=== PATIENT | female | born 1970 | race Caucasian/White ===

== ENCOUNTER → 2020-01-02 | Outpatient (CLI) | payer BC ==
[~2020-01-02] MED LIST: NOHOMEMEDICATIONS; NORCO 5-325 TA1 EACH PO
== END ==
LOC: SJCVCIMAG 09:16
PROVIDERS: ATTEND Internal Medicine
DX: I48.0 Paroxysmal atrial fibrillation (principal); I49.1 Atrial premature depolarization; I11.0 Hypertensive heart disease with heart failure; I50.32 Chronic diastolic (congestive) heart failure; E78.5 Hyperlipidemia, unspecified; I49.3 Ventricular premature depolarization

== ENCOUNTER → 2020-01-25 | Outpatient (CLI) | payer BC, OTHER | LOC: LAB 10:30 | PROVIDERS: ATTEND Internal Medicine Cardiovascular Disease | DX: Z01.812 Encounter for preprocedural laboratory examination (principal); Z20.828 Contact with and (suspected) exposure to other viral communicable diseases ==

== ENCOUNTER → 2020-01-25 | Outpatient (CLI) | payer BC, OTHER ==
[2020-01-25 09:34] LABS: ABSOLUTE NEUTROPHILS 5.7 thou/uL (1.4-8.2); EOSINOPHILS 2.1 % (0.0-3.0); HEMATOCRIT 41.4 % (37.0-47.0); HEMOGLOBIN 13.3 gm/dL (12.0-15.0); LYMPHOCYTES 24.4 % (24.0-44.0); MCH 27.7 pg (26.0-34.0); MCV 86.5 fL (80.0-100.0); MONOCYTES 10.3 % (1.0-8.0); PLATELET COUNT 318 thou/uL (150-400); POLYS 62.2 % (36.0-66.0); RBC 4.79 mil/uL (4.20-5.00); RDW 15.6 % (10.5-14.5); WBC 9.2 thou/uL (4.0-11.0)
[2020-01-25 09:54] LABS: ALBUMIN 3.8 g/dL (3.4-5.0); CALCIUM 8.9 mg/dL (8.5-10.1); CREATININE 0.5 mg/dL (0.6-1.0); POTASSIUM 4.4 mmol/L (3.5-5.1); TOTAL BILIRUBIN 0.3 mg/dL (0.2-1.0); TOTAL PROTEIN 7.2 g/dL (6.4-8.2)
== END ==
LOC: CAT 09:10
PROVIDERS: ATTEND Internal Medicine Cardiovascular Disease
DX: I48.91 Unspecified atrial fibrillation (principal); M47.814 Spondylosis without myelopathy or radiculopathy, thoracic region; E27.8 Other specified disorders of adrenal gland

== ENCOUNTER → 2020-01-29 | Outpatient (CLI) | payer BC, OTHER ==
[~2020-01-29] VITALS: Ht 170.2 cm; Wt 133.8 kg
[~2020-01-29] MED LIST changes: +BREO ELLIPTA 21 EACH INH; +COZAAR 25 MG TA25 M1 PO; +DILTIAZEM ER180 M2 PO; +ELIQUIS5 MG PO; +POTASSIUM20 PO; +PROAIR HFA8.5 GM INH; +PROTONIX40 M2 PO; +SINGULAIR 10 MG10 M1 PO; +SLOW FE142 MG PO; +TAMBOCOR 100 M100 MG PO; +TORSEMIDE20 MG PO; +VITAMIN D31250 MCG PO
[2020-01-29 07:04] VITALS: BP 130/77
--- NOTE | 2020-01-29 08:46 | TEE ---
[facility] [place] [address] TRANSESOPHAGEAL ECHOCARDIOGRAM Name: HODA LOZANO Room #: REG REG Mac#: [id number] Admission: 01/29/20 Attend Phys: Kee Astudillo MD, Discharge: Date of : 66 Report #: [id number] THIS REPORT FOR: cc: Roe Haines MD,Kee Madden MD, MD [facility] ~ APPROVED REPORT Study performed: 01/29/2020 07:46:42 EXAM: Transesophageal Echocardiogram Patient Location: holding Status: routine BSA: 2.39 HR: 79 bpm BP: 145/79 mmHg Other Information Study Quality: Good Indications Atrial Fibrillation Echo Enhancing Agent Indication: Rule out thrombus Agent(s) / Amount(s) Used: Agitated Saline 6 cc Procedure After obtaining informed consent, patient underwent transesophageal echo in the [employer]. Type of Sedation : Conscious Sedation Sedation was administered by Adriana Solitario RN. Sedation start time: 8:11 Case end Time: 8:14 Sedation was achieved intravenously with: Versed (6.5) Fentanyl (150) Transesophageal probe was inserted and advanced into esophagus without difficulty by Kee Astudillo MD. Echo enhancement indication: R/O Septal defect. Echo enhancement agent administered: Agitated Saline The MANISHA was performed without complications. Throughout the procedure, the blood pressure, pulse oximetry, cardiac rhythm, and rate were monitored. The patient tolerated the procedure without adverse effects. Recovery from conscious sedation was uneventful and vital signs were [facility] [address] [place] [address] TRANSESOPHAGEAL ECHOCARDIOGRAM Name: HODA LOZANO Room #: REG CL Darin.#: [id number] Admission: 01/29/20 Attend Phys: Kee Astudillo, Discharge: Date of : 66 Report #: [id number] stable. Left Ventricle The left ventricle is normal size. There is normal LV segmental wall motion. There is normal left ventricular wall thickness. The left ventricular systolic function is normal. The left ventricular ejection fraction is within the normal range. LVEF is 55-60%. Right Ventricle The right ventricle is normal size. The right ventricular systolic function is normal. Atria Left atrium is mildly dilated. No thrombus is visualized in the left atrium or appendage. No shunting by contrast bubble injection. The right atrium size is normal. Aortic Valve The aortic valve is normal in structure. No aortic regurgitation is present. There is no aortic valvular stenosis. Mitral Valve The mitral valve is normal in structure. Trace mitral regurgitation. No evidence of mitral valve stenosis. Tricuspid Valve The tricuspid valve is normal in structure. There is no tricuspid valve regurgitation noted. Pulmonic Valve The pulmonary valve is normal in structure. There is no pulmonic valvular regurgitation. Great Vessels The aortic root is normal in size. The ascending aorta is normal in size. IVC is normal in size and collapses >50% with inspiration. Pericardium There is no pericardial effusion. <Conclusion> The left ventricular systolic function is normal. There is normal LV segmental wall motion. LVEF is 55-60%. Left atrium is mildly dilated. [facility] [address] [place] [address] TRANSESOPHAGEAL ECHOCARDIOGRAM Name: HODA LOZANO Room #: REG CL MorrisMurali#: [id number] Admission: 01/29/20 Attend Phys: Kee Astudillo, Discharge: Date of : 66 Report #: [id number] No shunting by contrast bubble injection. No thrombus is visualized in the left atrium or appendage. The aortic valve is normal in structure. No aortic regurgitation or stenosis The mitral valve is normal in structure. Trace mitral regurgitation. There is no pericardial effusion. <ELECTRONICALLY SIGNED> By: Kee Astudillo MD, FACC 01/29/2046 5 5 Kee Astudillo MD, FACC /INF
--- NOTE | 2020-01-29 10:02 | NUR ---
PT GIVEN BENADRYL 25 MG IV AND SOLUMEDROL 125 MG IV PRIOR TO DISCHARGE. VO DR. ALAMO.
== END | disposition home or self-care (01) ==
LOC: CATH 06:27
PROVIDERS: ATTEND Internal Medicine
DX: I48.91 Unspecified atrial fibrillation (principal); I34.9 Nonrheumatic mitral valve disorder, unspecified; I48.92 Unspecified atrial flutter; I10 Essential (primary) hypertension; M79.7 Fibromyalgia; G47.33 Obstructive sleep apnea (adult) (pediatric); J45.909 Unspecified asthma, uncomplicated; K21.9 Gastro-esophageal reflux disease without esophagitis; Z98.890 Other specified postprocedural states; Z79.899 Other long term (current) drug therapy; Z79.01 Long term (current) use of anticoagulants; Z88.2 Allergy status to sulfonamides; Z88.0 Allergy status to penicillin; Z91.041 Radiographic dye allergy status

== ENCOUNTER 2020-01-30 06:36 | Observation (INO) | payer BC, OTHER ==
[~2020-01-30] VITALS: Ht 170.2 cm; Wt 133.8 kg
[2020-01-30] VITALS (11 sets, daily range): BP systolic 114–151; BP diastolic 66–94
--- NOTE | ~2020-01-30 | P ---
[facility] [address] PROCEDURE REPORT Name: HODA LOZANO Room #: [facility].Darin#: [id number] Admission: 01/30/20 Attend Phys: Shad Castañeda MD Discharge: Date of : 66 Report #: [id number] THIS REPORT FOR: cc: Roe Haines MD,Symone Castañeda,Shad Gray MD ~ CC: Symone Castañeda DATE OF SERVICE: 01/30/2020 PREOPERATIVE DIAGNOSIS: Atrial fibrillation. POSTOPERATIVE DIAGNOSES: Atrial fibrillation and atrial flutter. HISTORY: The patient is a 49-year-old female with history of paroxysmal atrial fibrillation, hypertension, obstructive sleep ____ and obesity, who continues to have AFib despite antiarrhythmic drug therapy. She is here for AFib ablation. PROCEDURES PERFORMED: 1. AFib ablation, CPT code 82630. 2. 3D mapping, CPT code 32690. 3. Intracardiac echo, CPT code 29474. 4. Second pathway ablation, CPT code 57061. ANESTHESIA: The patient underwent general anesthesia with no anesthesia-related complications. DESCRIPTION OF PROCEDURE: The patient underwent informed consent. We discussed the details of the procedure including the risks, which include, but are not limited to bleeding, infection, vascular damage, cardiac perforation, as well as stroke and WA. She understood these risks and is willing to proceed. The patient was brought to EP laboratory in fasting and sedated state, prepped and draped in sterile fashion. I then obtained access to the right femoral vein x 3, placing an 8, 9 and 7-Slovenian short sheath using the modified Seldinger technique and under fluoroscopy, I placed a Decapolar catheter easily in the coronary sinus for left atrial pacing and recording, and an ICE catheter into the right atrium. Using intracardiac ultrasound, there was evidence of a nice thin interatrial septum. She had two left and two right pulmonary veins. The 3D geometry using intracardiac ultrasound was created and this was merged with the cardiac CT scan. The patient was then systemically heparinized and a transseptal was performed using an SL1 sheath and a Barnes needle. This was straightforward and I was able to exchange to the cryo sheath, and placed the Lasso catheter in left atrium and created a detailed 3D voltage map of the left [address] [address] PROCEDURE REPORT Name: HODA LOZANO Room #: 211-P [facility] Tricia Hong#: [id number] Admission: 01/30/20 Attend Phys: Sahd Castañeda MD Discharge: Date of : 66 Report #: [id number] atrium. While doing so, the patient went into atrial flutter with a tachycardia cycle length of 250 milliseconds, proximal to distal activation along the CS and negative sawtooth flutter waves in the inferior leads consistent with typical atrial flutter. I was able to terminate this. Next, the cryoballoon was placed into the left atrium and we started trying to isolate the left superior pulmonary vein. This vein was challenging to isolate. I performed 5 separate freezes, all with good seals and I performed several freezes that were anterior, inferior, and superiorly directed without isolation. I turned my attention to the left inferior pulmonary vein and performed a 4-minute freeze. This vein isolated within 45 seconds. The right superior pulmonary vein underwent a 180-second freeze followed by a 60-second freeze. It appeared that the vein had isolated during the first freeze. I then turned my attention to the right inferior pulmonary vein. This vein underwent a single 4-minute freeze and isolated within 40 seconds. I then removed the cryoballoon from the left atrium and placed the Lasso catheter back in, and all veins were isolated except the left superior pulmonary vein, which had continued signals along the roof region of the vein. Therefore, I went back up with the balloon and I performed a roof freeze near the left superior pulmonary vein and this resulted in isolation within 60 seconds. This vein underwent a 4-minute freeze. As such, voltage map showed that everything was now isolated and left-sided procedure was concluded. ATRIAL FLUTTER ABLATION As the patient had demonstrated typical atrial flutter, we prepped her for atrial flutter ablation. I removed my 9-Slovenian short sheath and placed my RAMP sheath and 8 mm ablation catheter into the right atrium. Using intracardiac ultrasound, she did have a prominent pouch noted. Ablation was performed at 70 hastings and 60 degrees. Transisthmus conduction time prior to ablation was 60 milliseconds and I performed initial line, but there was no evidence of block. I therefore performed a more lateral line to get to some of the signals that were closer to the tricuspid valve. Of note, her anatomy was somewhat unusual and difficult for me to get to this tricuspid valve region. I performed one line slightly lateral to the initial line to get these signals and then performed a more medial line, focusing on the anterior signals along the tricuspid valve. After doing this, there was a bidirectional block of the transisthmus conduction time of 145 milliseconds. As such, the patient received systemic protamine. Catheters and sheaths were pulled and a [id number] suture was performed in the right groin. There were no procedure-related complications and no significant bleeding. CONCLUSIONS: [address] [address] PROCEDURE REPORT Name: HODA LOZANO Room #: 211-P [facility] M.R.#: [id number] Admission: 01/30/20 Attend Phys: Shad Castañeda MD Discharge: Date of : 66 Report #: [id number] 1. Successful AFib ablation with isolation of the pulmonary veins. 2. Successful atrial flutter ablation with evidence of bidirectional block. By: [id number] Shad Castañeda MD /nt
[~2020-01-30 06:36] MED LIST changes: -PROAIR HFA8.5 GM INH
[2020-01-30] MEDS ORDERED: PROAIR HFA8.5 GM INH (07:34)
[2020-01-30 07:39] LABS: HEMATOCRIT 41.1 % (37.0-47.0); HEMOGLOBIN 13.1 gm/dL (12.0-15.0); MCH 27.6 pg (26.0-34.0); MCHC 31.9 g/dL (28.0-37.0); MCV 86.4 fL (80.0-100.0); PLATELET COUNT 365 thou/uL (150-400); RBC 4.75 mil/uL (4.20-5.00); RDW 15.5 % (10.5-14.5); WBC 23.9 thou/uL (4.0-11.0)
[2020-01-30 07:51] LABS: CALCIUM 9.2 mg/dL (8.5-10.1); CREATININE 0.8 mg/dL (0.6-1.0); POTASSIUM 3.7 mmol/L (3.5-5.1)
[2020-01-30 07:57] LABS: TOTAL BILIRUBIN 0.2 mg/dL (0.2-1.0); TOTAL PROTEIN 7.8 g/dL (6.4-8.2)
[2020-01-30 09:04] LABS: APTT 28.2 Seconds (24.5-32.8); PROTIME 10.7 Seconds (9.3-11.4)
[2020-01-30 09:56] LABS: LARGE PLATELETS OCCASIONAL
--- NOTE | 2020-01-30 13:10 | NUR ---
PT. ON OUR UNIT, ASSESSMENT COMPLETED. SHE REPORTS ALOT OF "BUILD UP AND ANXIETY "- ABOUT PROCEDURE SO NOW SHE JUST WANTS TO SLEEP AND RELAX. HAS MIDDLE DULL BACK PAIN SHE ATTRIBUTES TO LYING FLAT IN THE BED AND NOT MOVING. WE PUT HER BIPAP ON HER NOW SO SHE COULD RELAX A LITTLE MORE AND SHE WEARS IT TO NAP DURING THE DAY PER HER REPORT. PT. IS NSR ON THE MONITOR NO ECTOPY OBSERVED AT ALL. DENIES ANY CHEST PAIN OTHER THEN. "FEELS LIKE MAYBE THEY DID SOMETHING UP THERE TODAY". PEDAL PULSES ARE 2+ STRONG BILATERALLY, LEGS ARE WARM TO TOUCH, NO MOTTLING OBSERVED.
--- NOTE | 2020-01-30 18:03 | NUR ---
13:30- RIGHT GROIN CATHETER REMOVED PER COUCHNALL . NO HEMATOMA AT SITE, PEDAL PULSES REMAIN STRONG, 2+ BILATERALLY AND BOTH LEGS WARM TO TOUCH. PT. WILL BE OFF 6 HOURS BESDREST AT 16:30 TODAY AND INSTRUCTED TO SUCH. LONG DISCUSSION ABOUT POST OP EXPECTATIONS AND CHEST PAIN WHEN SHE BREATHES IN ONLY, SAID THIS IS FROM THEM "FREEZING HER HEART"-DURING THE PROCEDURE AND IS VERY NORMAL. SLEEPING WITH HER CPAP ON AND OFF THIS AFTERNOON. MONITOR SHOWS NSR NO ECTOPY NOW.
--- NOTE | 2020-01-30 18:05 | NUR ---
14:30 WOKE UP FROM SLEEPING ATE HER LUNCH AND RIGHT GROIN REMAINS HEMATOMA FREE AND NO OOZING AT SITE. MONITOR SHOWS NSR NO ECTOPY AND SHE IS TEARFUL SHE SAID FROM "ALL THE STRESS SHE HAD PRIOR TO SURGERY AND THE BUILD UP".
--- NOTE | 2020-01-30 18:07 | NUR ---
16:30 OFF BEDREST AT THIS TIME. VERY TALKATIVE AND IN GOOD SPIRITS OVERALL. DENIES ANY CHEST PAIN. NSR ON THE MONITOR AND NO ECTOPY NOTED . RIGHT GROIN HEMATOMA FREE, NO OOZING FROM GROIN SITE DRESSING.
--- NOTE | 2020-01-30 19:48 | NUR ---
PT. UP TO BATHROOM TO CLEAN UP HER MENSES, SPRUNG A SMALL AMOUNT OF BLEEDING IN MOVEMENT (40ML) OUT, PRESSURE MAINATINED ON GROIN SITE IMMEDIATLEY. SHE HAD HUGE SOAKED MENSES PAD FROM HER PERIOD WHICH SHE SAID IS HER "NORMAL FLOW OFTEN". WITHIN HER NOMRAL LIMITS FOR HER PERIOD. RIGHT GROIN LOOKS HEMATOMA FREE, PULSES ARE STRONG BILATERALLY AND NO MOTTLING ON HER LEGS BILATERALLY ANYWHERE. REPROT GIVEN TO ONCOMING NURSE. BACK IN BED, VS RETUNRED TO BASELINE AND DENIES PAIN PRESENTLY. NSR , NO ECTOPY POST LEAK AT SITE BLOOD PRESSURE WITHIN HER PRIOR VALUES.
--- NOTE | 2020-01-31 03:30 | NUR ---
PATIENT IS PROGRESSING SLOWLY IN HER CARE PLAN. VITAL SIGNS STABLE WITH PATIENT HAVING NO COMPLAINTS OF PAIN OR NAUSEA. FULLY ORIENTED BUT ANXIOUS, PATIENT IS ABLE TO CALL APPROPRIATELY FOR NEEDS AND PARTICIPATE IN CARE. PATIENT KEPT ON SUPPLEMENTAL OXYGEN PER REQUEST. BREATHING STABLE EVIDENCED BY ASSESSMENTS AND CONTINUOUS SATURATION MONITORING. UPON INITIAL ASSESSMENT PATIENTS CATH SITE APPEARED TO BE LEAKING BLOOD. FURTHER COMPLICATING MATTERS PATIENT IS ON HER MENSTRUAL CYCLE AND HAS HEAVY FLOW. ORDERS OBTAINED FOR PROPER MEDICATIONS WITH NURSE HOLDING PRESSURE TO GOOD AFFECT. UP WITH STANDBY ASSISTANCE INCIDENT FREE. CONTINUE PLAN OF CARE.
[2020-01-31 04:33] VITALS: BP 152/70
[2020-01-31 04:57] LABS: HEMATOCRIT 36.5 % (37.0-47.0); HEMOGLOBIN 11.8 gm/dL (12.0-15.0); MCHC 32.3 g/dL (28.0-37.0); MCV 86.7 fL (80.0-100.0); RBC 4.21 mil/uL (4.20-5.00); RDW 15.4 % (10.5-14.5); WBC 22.7 thou/uL (4.0-11.0)
[2020-01-31 07:44] VITALS: BP 146/85
[2020-01-31 09:36] VITALS: BP 146/85
[2020-01-31 11:53] VITALS: BP 152/93
== END 2020-01-31 15:37 | disposition home or self-care (01) ==
LOC: CATH 06:36 → 2N 12:23 → CATH 12:26 → 2N 01-31 15:37
PROVIDERS: Internal Medicine Cardiovascular Disease; ADMIT Internal Medicine Cardiovascular Disease; ATTEND Internal Medicine Cardiovascular Disease
DX: I48.0 Paroxysmal atrial fibrillation (principal); I48.92 Unspecified atrial flutter; I10 Essential (primary) hypertension; G47.33 Obstructive sleep apnea (adult) (pediatric); J45.909 Unspecified asthma, uncomplicated; E66.9 Obesity, unspecified; Z68.42 Body mass index [BMI] 45.0-49.9, adult; Z79.899 Other long term (current) drug therapy
CPT/HCPCS: 10797; 62110; 62900; 70005

== ENCOUNTER → 2020-11-26 | Outpatient (CLI) | payer BC, OTHER ==
[~2020-11-26] MED LIST changes: +PROAIR HFA8.5 GM INH
== END ==
LOC: SJCVCIMAG 11:30
PROVIDERS: ATTEND Internal Medicine
DX: R09.89 Other specified symptoms and signs involving the circulatory and respiratory systems (principal); H93.A9 Pulsatile tinnitus, unspecified ear